=== PATIENT | female | born 1980 | race Caucasian/White ===

== ENCOUNTER 2018-12-02 23:25 | Emergency (ER) | payer MEDICAID ==
[~2018-12-02] VITALS: Ht 165.1 cm; Wt 79.8 kg
[2018-12-02 23:39] VITALS: BP_SYST 155
[2018-12-03] MEDS ORDERED: ACYCLOVIR 400 MG TABLET PO SCH (01:15)
[2018-12-03 01:28] VITALS: BP_SYST 142
== END 2018-12-03 01:28 | disposition home or self-care (01) ==
LOC: SED 23:25
DX: B02.9 Zoster without complications (principal)
CPT/HCPCS: 81025; 99283

== ENCOUNTER 2019-04-21 17:13 | Emergency (ER) | payer MEDICAID ==
[~2019-04-21] VITALS: Ht 165.1 cm; Wt 79.4 kg
[2019-04-21 17:17] VITALS: BP_SYST 106
[2019-04-21 17:42] VITALS: BP_SYST 106
[2019-04-21] MEDS ORDERED: ACYCLOVIR 400 MG TABLET PO ONE (17:45)
[2019-04-21] MEDS ORDERED: ACYCLOVIR 400 MG TABLET ONE (17:51)
== END 2019-04-21 17:41 | disposition home or self-care (01) ==
LOC: SED 17:13
DX: B02.9 Zoster without complications (principal)
CPT/HCPCS: 99283

== ENCOUNTER 2023-01-13 03:56 | Emergency (ER) | payer MEDICAID ==
[~2023-01-13] VITALS: Ht 165.1 cm; Wt 72.6 kg
--- NOTE | 2023-01-13 04:08 | NUR ---
Patient triaged and placed in room 5. VSS and patient appears in no acute distress at this time. Accompanied by self and MD notified of need for MSE.
[2023-01-13 04:14] VITALS: BP_SYST 128
--- NOTE | 2023-01-13 04:15 | NUR ---
Pt bib self from home, ambulated to bed 5. Pt A&Ox4, able to make needs known. Pt c/o bump on back of head since Thursday. Pt states it felt like a "pimple" and tried to "pop" it on Thursday. Pt states bump has gotten bigger since Thursday. Pt rates pain 02/23. Pt describes pain as throbbing and shotting pain. Pt states she has tried warm compress. Pt states she took 5mg [place] at 0000. Pt denies N/V/D, fever and chills. Pt denies SOB and chest pain. Safety precautions in place.
--- NOTE | 2023-01-13 04:20 | NUR ---
ER Dr. Guerra at bedside examining patient.
[2023-01-13] MEDS ORDERED: LIDOCAINE 1% 10 MG/ML, 20 ML MDV INJ ONE (04:30)
[2023-01-13] MEDS ORDERED: SULF1TAB48 PO (04:52)
[2023-01-13] MEDS ORDERED: IBUP-1969 PO (04:52)
[2023-01-13 05:07] VITALS: BP_SYST 125
--- NOTE | 2023-01-13 05:07 | NUR ---
Patient given written and verbal discharge instructions and verbalizes understanding. ER Dr Guerra discussed with patient the results and treatment provided. Patient in stable condition. ID arm band removed. Rx of Motrin and Bactrim given. Patient educated on pain management and to follow up with PMD. Pain Scale 2/10. Opportunity for questions provided and answered. Medication side effect fact sheet provided.
== END 2023-01-13 05:07 | disposition home or self-care (01) ==
LOC: SED 03:56
DX: L02.811 Cutaneous abscess of head [any part, except face] (principal); R22.0 Localized swelling, mass and lump, head; Z79.899 Other long term (current) drug therapy
CPT/HCPCS: 10060; 99282; J2001